=== PATIENT | female | born 1950 ===

== ENCOUNTER 2016-09-22 10:00 | Outpatient (CLI) | payer MEDICARE, BC | END 2016-09-22 10:01 | LOC: NAVSJIPCSP 10:00 | PROVIDERS: ATTEND Internal Medicine | DX: E78.5 Hyperlipidemia, unspecified (principal); Z79.899 Other long term (current) drug therapy | CPT/HCPCS: 36415; 80061 ==

== ENCOUNTER 2016-12-23 10:27 | Outpatient (CLI) | payer MEDICARE, BC ==
[2016-12-23 13:39] LABS: Cardiac Risk 2.8 (Less than 4.5)
[2016-12-24 18:30] LABS: Hep C IgG Ab Non-Reactive (NonReactive); Hep C Index 0.07 S/CO (0-0.79)
== END 2016-12-23 10:28 | disposition home or self-care (01) ==
LOC: NAVSJIPCSP 10:27
PROVIDERS: ATTEND Internal Medicine
DX: E78.5 Hyperlipidemia, unspecified (principal); Z72.89 Other problems related to lifestyle
CPT/HCPCS: 36415; 80061; 86803